=== PATIENT | male | born 1950 | race Caucasian/White ===

== ENCOUNTER 2024-01-20 01:27 | Emergency (ER) | payer BC, OTHER ==
[~2024-01-20] VITALS: Ht 170.2 cm; Wt 73.7 kg
[2024-01-20 01:29] VITALS: O2SAT 96
[2024-01-20 01:55] LABS: EOSINOPHILS % 0.8 % (0.0-5.0); HEMATOCRIT. 42.7 % (42.0-52.0); HEMOGLOBIN. 14.3 g/dL (14.0-18.0); LYMPHOCYTES % 10.8 % (20.0-50.0); MEAN CORPUSCULAR HEMOGLOBIN 32.9 pg (28.0-32.0); MEAN CORPUSCULAR HGB CONC 33.6 g/dL (31.0-37.0); MEAN CORPUSCULAR VOLUME 97.8 fL (80.0-94.0); MEAN PLATELET VOLUME 8.7 fl (7.4-10.4); MONOCYTES % 3.8 % (2.0-8.0); NEUTROPHILS % 83.6 % (40.0-76.0); PLATELET 249 x1000/uL (130-400); RED BLOOD CELL COUNT 4.37 mill/uL (4.7-6.1); RED CELL DISTRIBUTION WIDTH 14.9 % (11.6-14.6); WHITE BLOOD COUNT 15.6 x1000/uL (4.5-11.0)
[2024-01-20 02:11] LABS: LACTIC ACID 2.2 mmol/L (0.4-2.0)
[2024-01-20 02:12] LABS: ALANINE AMINOTRANSFERASE 267 IU/L (10-49); ALBUMIN 4.2 g/dL (3.2-4.8); ASPARTATE AMINOTRANSFERASE 207 IU/L (<34); BILIRUBIN TOTAL 2.3 mg/dL (0.1-1.0); CALCIUM 8.8 mg/dL (8.7-10.4); CARBON DIOXIDE 26 mEq/L (21-32); CHLORIDE 106 mEq/L (98-107); CREATININE 1.3 mg/dL (0.6-1.3); GLUCOSE 201 mg/dL (70-105); POTASSIUM 4.5 mEq/L (3.5-5.1); PROTEIN TOTAL 8.1 g/dL (6.0-8.3); SODIUM 138 mEq/L (136-145); UREA NITROGEN BLOOD 17 mg/dL (9-23)
[2024-01-20 02:17] LABS: ETHANOL BLOOD < 10 mg/dL (<10)
[2024-01-20 02:21] LABS: TROPONIN I HIGH SENSITIVITY 117 ng/L (3.0-53)
[2024-01-20] MEDS: ONDANSETRON HCL 4MG/2ML INJ IV NR (03:15)
[2024-01-20] MEDS: MORPHINE SULFATE 4 MG/ML CPJ (NOT FOR IM USE) IV NR (03:15)
[2024-01-20] MEDS: IOHEXOL-350 100 ML BOTTLE ONE (06:13)
[2024-01-20] MEDS ORDERED: HEPARIN BOLUS PRN aPTT <36 IV (07:00)
[2024-01-20] MEDS ORDERED: HEPARIN BOLUS PRN aPTT 37-44 IV (07:00)
[2024-01-20] MEDS: SODIUM CHLORIDE 0.9% 1,000 ML IV ONE (07:05)
[2024-01-20 07:58] LABS: PARTIAL THROMBOPLASTIN TIME 26.4 sec (23.4-31.0); PROTHROMBIN TIME 10.9 sec (9.6-11.0)
[2024-01-20 08:12] LABS: *AMPHETAMINES SCREEN URINE NEGATIVE (NEGATIVE); *BARBITURATES SCREEN URINE NEGATIVE (NEGATIVE); *BENZODIAZEPINES SCREEN URINE NEGATIVE (NEGATIVE); *COCAINE SCREEN URINE NEGATIVE (NEGATIVE); CANNABINOID URINE SCREEN NEGATIVE (NEGATIVE); ECSTASY MDMA SCREEN URINE NEGATIVE (NEGATIVE); METHADONE URINE SCREEN Neg (NEGATIVE); OPIATES URINE SCREEN PRESUMPTIVE POSITIVE (NEGATIVE); PHENCYCLIDINE URINE SCREEN NEGATIVE (NEGATIVE)
[2024-01-20] MEDS: AZTREONAM 2 GM in DEXT 5% WATER 100 ML IV SCH (08:53)
[2024-01-20] MEDS: HEPARIN 80 UNITS/KG BOLUS IV SCH (09:45)
[2024-01-20] MEDS: HEPARIN 25,000 UNITS PREMIX 250 ML IV SCH (09:45)
[2024-01-20 15:51] LABS: TROPONIN I HIGH SENSITIVITY 96 ng/L (3.0-53)
[2024-01-20] MEDS: ENOXAPARIN 80MG/0.8ML SYR SUBCUT ONE (21:57)
[2024-01-20 23:15] VITALS: BP 116/65; PULSE 82; RESP 21; TEMP 98.7
== END 2024-01-21 00:05 | disposition short-term general hospital (02) ==
LOC: ER 01:27
DX: R07.89 Other chest pain (principal); K85.90 Acute pancreatitis without necrosis or infection, unspecified; I74.5 Embolism and thrombosis of iliac artery; E78.00 Pure hypercholesterolemia, unspecified; I10 Essential (primary) hypertension; I25.2 Old myocardial infarction
CPT/HCPCS: 80053; 80305; 80320; 82962; 83880; 83605; 83690; 85025; 85610; 85730; 87040; 84484; 36415; 74174; 71045; 71275; 76705; 74181; 93005; 96368; 96361; 96365; 96372; 96375; 99291; Q9967; J3490; J1650; J1644 ×2; J2405; J2270; J7060; G0480